=== PATIENT | female | born 1970 | race Caucasian/White ===

== ENCOUNTER 2016-06-27 17:42 | Emergency (ER) | payer BC ==
[2016-06-27] MEDS ORDERED: Ibuprofen TAB* 600 MG PO ONE (18:42)
--- NOTE | 2016-06-27 18:46 | UC ---
Lower Extremity/Ankle HPI - HPI Summary HPI Summary: patient was in an exercise class, rolled ankle and heard a snap, unable to put pressure on it, swelling around lateral maleolus - History of Current Complaint Chief Complaint: UCLowerExtremity Stated Complaint: ANKLE INJURY Time Seen by Provider: 06/27/16 18:40 Hx Obtained From: Patient Hx Last Menstrual Period: iud ?: No Onset/Duration: Sudden Onset, Lasting Minutes Severity Initially: Severe Severity Currently: Severe Aggravating Factor(s): Standing, Ambulation Alleviating Factor(s): Ice Able to Bear Weight: No - Allergies/Home Medications Allergies/Adverse Reactions: Allergies Allergy/AdvReac Type Severity Reaction Status Date / Time Adhesive Tape Allergy LOCAL SKIN Verified 06/27/16 18:29 IRRITATION Sulfa Antibiotics Allergy Rash Verified 06/27/16 18:29 ENVIRONMENTAL Allergy Unknown Uncoded 06/27/16 18:29 Reaction Details PMH/Surg Hx/FS Hx/Imm Hx Previously Healthy: Yes Endocrine History Of: Denies: Diabetes, Thyroid Disease - ENLARGED THYROID- NODES Cardiovascular History Of: Denies: Cardiac Disorders, Hypertension, Pacemaker/ICD Respiratory History Of: Reports: Asthma - PRN ALBUTEROL/cold sx, Bronchitis Denies: COPD GI/ History Of: Denies: Ulcer, Renal Disease Neurological History Of: Reports: Migraine - SEVERAL TIMES PER MONTH-TREATS WITH ADVIL Psychological History Of: Reports: Anxiety - NO MEDS Cancer History Of: Denies: Breast Cancer - Surgical History Surgical History: Yes Surgery Procedure, Year, and Place: cyst removed from rt breast 16 and 21 yrs [id number], RIGHT BREAST, [facility]. WISDOM TEETH A TEEN - Family History Family History: no cardio vascular issues in lineage reported - Social History Alcohol Use: Weekly Alcohol Amount: 0-4 PER WEEK Substance Use Type: None Smoking Status (MU): Never Smoked Tobacco Have You Smoked in the Last Year: No - Immunization History Most Recent Influenza Vaccination: 2016 Most Recent Tetanus Shot: up to date Most Recent Pneumonia Vaccination: no Review of Systems Constitutional: Negative Skin: Negative Eyes: Negative ENT: Negative Respiratory: Negative Cardiovascular: Negative Gastrointestinal: Negative Genitourinary: Negative Motor: Negative Neurovascular: Negative Musculoskeletal: Arthralgia, Decreased ROM, Edema, Myalgia Neurological: Negative Psychological: Negative All Other Systems Reviewed And Are Negative: Yes Physical Exam Triage Information Reviewed: Yes Appearance: Well-Nourished, Ill-Appearing, Pain Distress Vital Signs: Initial Vital Signs Temp 98.1 F 06/27/16 18:22 Pulse 82 06/27/16 18:22 Resp 20 06/27/16 18:22 BP 118/79 06/27/16 18:22 Pulse Ox 100 06/27/16 18:22 Vital Signs Reviewed: Yes Eye Exam: Normal Eyes: Positive: Conjunctiva Clear ENT: Positive: Hearing grossly normal, Pharynx normal, TMs normal Dental Exam: Normal Neck exam: Normal Neck: Positive: Supple, Nontender, No Lymphadenopathy Respiratory Exam: Normal Respiratory: Positive: Chest non-tender, Lungs clear, Normal breath sounds Cardiovascular Exam: Normal Cardiovascular: Positive: RRR, No Murmur, Pulses Normal Abdominal Exam: Normal Abdomen Description: Positive: Nontender, No Organomegaly, Soft Bowel Sounds: Positive: Present Musculoskeletal Exam: Normal Musculoskeletal: Positive: Strength Limited @, ROM Limited @, Edema @ - left lat maleolus swelling and tenderness, ROM limited in all directions Neurological Exam: Normal Neurological: Positive: Alert, Muscle Tone Normal Psychological Exam: Normal Skin Exam: Normal Lower Extremity Course/Dx - Course Course Of Treatment: hx obtained, exam performed, ibuprofen given and xray obtained no fracture noted. ismael wrap gel spint and crutches provided. - Differential Dx/Diagnosis Differential Diagnosis/HQI/PQRI: Contusion, Dislocation, Fracture (Closed), Sprain, Strain Provider Diagnoses: right lateral ankle sprain. abnormal gait Discharge - Discharge Plan Condition: Stable Disposition: HOME Patient Education Materials: Ankle Sprain (ED) Referrals: Luz Kate NP [Primary Care Provider] - Jose Enrique Peterson MD [Medical Doctor] - Additional Instructions: 1. rest, Ice Comrpess and elevate 2. use the crutches to ease back into weight bearing. 3. Use the gel splint for support 4. return slowly to activity 5. I have given a referral to Orthopedics if your pain remains severe and you are having trouble bearing weight within a week.
--- NOTE | 2016-06-27 19:23 | RAD ---
INDICATION: Right ankle injury. TECHNIQUE: 3 views of the right ankle were obtained. FINDINGS: Soft tissue swelling is noted along the anterolateral aspect of the ankle. No fracture is seen. Joint spaces appear maintained. IMPRESSION: SOFT TISSUE SWELLING, NO FRACTURE IS SEEN.
[2016-06-27 20:08] VITALS: BP 144/76
== END 2016-06-27 19:58 | disposition home or self-care (01) ==
LOC: UCEAST 17:42
DX: S93.401A Sprain of unspecified ligament of right ankle, initial encounter (principal); X50.1XXA Overexertion from prolonged static or awkward postures, initial encounter; Y93.9 Activity, unspecified; Y92.89 Other specified places as the place of occurrence of the external cause; J45.909 Unspecified asthma, uncomplicated; Z88.2 Allergy status to sulfonamides; G43.909 Migraine, unspecified, not intractable, without status migrainosus; R26.9 Unspecified abnormalities of gait and mobility
CPT/HCPCS: 99213; A9270-GY; G0463

== ENCOUNTER 2016-11-14 15:32 | Emergency (ER) | payer SELFPAY ==
[2016-11-14 15:46] VITALS: BP 105/55
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
--- NOTE | 2016-11-14 16:19 | RAD ---
Indication: Crush injury to the hand. 4 views of the right hand are reviewed. No fracture is noted. No other bone or joint abnormality is noted. IMPRESSION: No fracture of the right hand is noted.
== END 2016-11-14 16:55 | disposition home or self-care (01) ==
LOC: UCEAST 15:32
DX: S60.221A Contusion of right hand, initial encounter (principal); W20.8XXA Other cause of strike by thrown, projected or falling object, initial encounter; Y93.9 Activity, unspecified; Y92.9 Unspecified place or not applicable; Y99.0 Civilian activity done for income or pay
CPT/HCPCS: 99212; G0463

== ENCOUNTER 2017-08-06 18:54 | Emergency (ER) | payer BC ==
--- OUTSIDE RECORDS SUMMARY | 2017-08-06 19:17 | XMS REPORT ---
:1970 External Reference #:[id number] Author Organization [employer] Address [address] [address] Phone [phone] Care Team Providers Name Role Phone [facility] Care Care Team Information Supervisor Sound Technician Unavailable Luanne Arrington MD Primary Care Physician Unavailable Payers Type Date Identification Numbers Payment Provider Subscriber Commercial Effective: Policy Number: BS James Pickering 2016 [id number] PayID: [id number] [address] [address] Medigap Part B Effective: Policy Number: BS James Pickering 2015 [id number] Expires: 2016 PayID: [id number] [address] [address] [place] [address] Medigap Part B Expires: 2014 Policy Number: [id number] [facility] Cecilio Macariotrish PayID: [id number] [address] [place] [address] Problems Date Description Provider Status Onset: 02/02/2011 Irritable bowel syndrome Luz Kate, N.P. 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 nostril twice daily Probiotic 07/14/ Active Capsules 30cap 1 by Luz 2017 s mouth Varn, every day N.P. Multivitamins / Active Capsules 30cap 1 capsule Unknown 0000 s daily Calcium / Active Tablets 500mg 60tab 1 po qd Unknown 0000 s Vitamin D / Active Capsules 3000Unit 30cap 1po qd Unknown 0000 s IUD / Active Unknown 0000 Zyrtec Allergy / Active Capsules 10mg 1 by Unknown 0000 mouth every day Vitamin B / Active Tablets 1 by Unknown Complex 0000 mouth every day Fish Oil / Active Capsules 1000mg 1 by Unknown 0000 mouth every day Tamoxifen / Active Tablets 20mg daily Unknown Citrate 0000 D 3000 / Active Tablets 1000Unit take two Unknown 0000 capsule/t ablet daily by mouth as vitamin d3 Fluconazole 09/28/ Hx Tablets 150mg 2tabs one by Luz 2016 - mouth july Var, 03/24/ repeat in N.P. 2018 3 days Nitrofurantoin 06/20/ Hx Capsules 100mg 14cap take one N39.3 Kenneth Macrocrystal 2016 - s capsule CHLOÉ Pagan 06/27/ twice 2016 daily for 7 days. Doxycycline 06/20/ Hx Tablets 100mg 2tabs take two S20.361A Kenneth Hyclate 2016 - tablets CHLOÉ Pagan 06/21/ once. 2017 Levofloxacin 05/24/ Hx Tablets 500mg 7tabs 1 tablt J20.9 Jefe 2015 - by mouth Jimenez, 08/09/ every day M.D. 2016 Tessalon Perles 05/24/ Hx Capsules 100mg 20cap 1 cap by J20.9 Jefe 2015 - s mouth Jimenez, 08/09/ three M.D. 2016 times a day as needed Allergy Eye 03/25/ Hx Solution 0.025% 1unit 1-2 drops Luz Drops 2013 - s ou bid Varn, 08/08/ prn N.P. 2014 Vivotif Mimi 03/25/ Hx Capsules DR geiger one po V65.49 Luz 2013 - qod for 4 Varn, 04/02/ doses N.P. 2013 Ciprofloxacin 03/25/ Hx Tablets 500mg 14tab one po V65.49 Luz HCL 2013 - s bid for 7 Varn, 04/01/ days N.P. 2013 No Active 05/31/ Hx Unknown Medications 2012 - 2012 Fluconazole 01/15/ Hx Tablets 150mg 2tabs one by Luz 2011 - mouth july Varn, 01/21/ repeat in N.P. 2011 3 days as needed Azithromycin 02/02/ Hx Tablets 250mg 6tabs two tabs 462 Brandee 2010 - day one, Nicole, 02/12/ one daily M.D., 2010 untill FACP gone Celexa 09/29/ Hx Tablets 20mg 90tab Take One Brandee 2010 - Tablet By Nicole, 05/31/ Mouth M.D., 2012 Every Day FACP OTC Allergy Rx / Hx prn Unknown 0000 - 2015 Fluticasone / Hx Suspension 50mcg/Act 2 sprays Unknown Propionate 0000 - each 08/09/ nostril 2016 everyday Pataday / Hx Solution 0.2% 1 drop in Unknown 0000 - each eye 08/09/ once 2016 daily Probiotic Daily / Hx Capsules Unknown 0000 - 2015 Nyquil Severe / Hx Liquid 5-6.25-10 1 dose at Unknown Cold/Flu 0000 - -325mg/15 hs 08/09/ ML 2016 Pazeo 00/ Hx Solution 0.7% in Unknown 0000 - affected 03/24/ eye as 2018 needed Not Using B Complex / Hx Capsules 1 by Unknown 0000 mouth every day Immunizations CPT Code Status Date Vaccine Lot # [id number] Given 12/05/2016 Influenza Virus Vaccine, Quadrivalent, Split, Preservative Free [id number] Given 12/18/2015 Flu Vaccine NOS [id number] Given 12/11/2014 Fluvirin Im 3Yrs And Older 52906 Given 12/06/2013 Influenza Virus Vaccine, Quadrivalent, Split, [id number] Preservative Free [id number] Given 11/28/2012 Flu Vaccine Split Virus Preservative Free For [id number] Indiv 3Yr Older [id number] Given 06/27/2012 Tdap - Tetanus/Diptheria/Acellular Pertussis [id number] Given 02/24/2009 Influenza Virus Vaccine, Pandemic Formulation 28388 Given 02/24/2009 Administration Swine Flu Shot Vital Signs Date Vital Result Comment 07/14/2017 Weight 141.00 lb Heart Rate 64 /min BP Systolic 124 mmHg BP Diastolic 78 mmHg Body Temperature 98.6 F O2 % BldC Oximetry 98 % 03/24/2017 Weight 137.50 lb Heart Rate 65 /min BP Systolic 122 mmHg BP Diastolic 78 mmHg Body Temperature 98.3 F O2 % BldC Oximetry 98 % 08/15/2016 Height 63.5 inches 5'3.50" Weight 137.50 lb Heart Rate 66 /min BP Systolic 114 mmHg BP Diastolic 62 mmHg Body Temperature 98.6 F O2 % BldC Oximetry 98 % BMI (Body Mass Index) 24.0 kg/m2 07/07/2016 Height 64 inches 5'4" Weight 142.00 lb Heart Rate 75 /min BP Systolic 104 mmHg BP Diastolic 86 mmHg Respiratory Rate 15 /min Pain Level 3 BMI (Body Mass Index) 24.4 kg/m2 06/20/2016 Weight 142.75 lb Heart Rate 79 /min BP Systolic 128 mmHg BP Diastolic 62 mmHg Body Temperature 98.4 F O2 % BldC Oximetry 98 % 05/23/2016 Heart Rate 66 /min BP Systolic 104 mmHg BP Diastolic 74 mmHg Respiratory Rate 16 /min Body Temperature 98.2 F 02/11/2016 Heart Rate 84 /min BP Systolic 98 mmHg BP Diastolic 66 mmHg Respiratory Rate 18 /min Body Temperature 98.4 F 02/02/2016 Height 64 inches 5'4" Weight 150.00 lb Heart Rate 62 /min BP Systolic Sitting 104 mmHg BP Diastolic Sitting 78 mmHg Respiratory Rate 16 /min Body Temperature 98.0 F BMI (Body Mass Index) 25.7 kg/m2 01/25/2016 Height 64 inches 5'4" Weight 150.00 lb Heart Rate 78 /min Respiratory Rate 16 /min Body Temperature 97.8 F BMI (Body Mass Index) 25.7 kg/m2 08/10/2015 Height 63.75 inches 5'3.75" Weight 157.00 lb Heart Rate 72 /min BP Systolic Sitting 110 mmHg BP Diastolic Sitting 62 mmHg Respiratory Rate 15 /min Body Temperature 97.7 F O2 % BldC Oximetry 98 % BMI (Body Mass Index) 27.2 kg/m2 05/25/2015 Height 64 inches 5'4" Weight 157.25 lb Heart Rate 78 /min BP Systolic Sitting 130 mmHg BP Diastolic Sitting 92 mmHg Body Temperature 98.7 F O2 % BldC Oximetry 98 % BMI (Body Mass Index) 27.0 kg/m2 11/07/2014 Weight 154.00 lb Heart Rate 72 /min BP Systolic Sitting 128 mmHg BP Diastolic Sitting 76 mmHg Body Temperature 97.6 F O2 % BldC Oximetry 98 % 08/08/2014 Height 63.75 inches 5'3.75" Weight 154.00 lb Heart Rate 68 /min BP Systolic 105 mmHg BP Diastolic 60 mmHg Body Temperature 99.3 F BMI (Body Mass Index) 26.6 kg/m2 07/10/2013 Weight 149.50 lb Heart Rate 64 /min BP Systolic 122 mmHg BP Diastolic 70 mmHg Respiratory Rate 16 /min Body Temperature 98.0 F 03/25/2013 Weight 153.50 lb Heart Rate 80 /min BP Systolic 114 mmHg BP Diastolic 72 mmHg 11/28/2012 Weight 155.00 lb Heart Rate 72 /min BP Systolic Sitting 110 mmHg BP Diastolic Sitting 70 mmHg 08/08/2012 Weight 150.00 lb Heart Rate 76 /min BP Systolic 118 mmHg BP Diastolic 70 mmHg Respiratory Rate 16 /min 06/27/2012 Height 63.75 inches 5'3.75" Weight 152.00 lb Heart Rate 68 /min BP Systolic Sitting 104 mmHg BP Diastolic Sitting 70 mmHg BMI (Body Mass Index) 26.3 kg/m2 06/15/2012 Weight 152.00 lb Heart Rate 67 /min BP Systolic Sitting 110 mmHg BP Diastolic Sitting 78 mmHg O2 % BldC Oximetry 98 % 05/31/2012 Weight 150.00 lb Heart Rate 78 /min BP Systolic 124 mmHg BP Diastolic 70 mmHg Body Temperature 98.0 F 08/18/2011 Height 64.5 inches 5'4.50" Weight 149.00 lb Heart Rate 64 /min BP Systolic Sitting 102 mmHg BP Diastolic Sitting 64 mmHg BMI (Body Mass Index) 25.2 kg/m2 02/02/2011 Height 64.5 inches 5'4.50" Weight 145.00 lb Heart Rate 72 /min BP Systolic Sitting 122 mmHg BP Diastolic Sitting 66 mmHg Body Temperature 98.8 F Orally BMI (Body Mass Index) 24.5 kg/m2 Results Test Date Test Result H/L Range Note Ua Routine 03/24/2017 Ua Specific Barron 1010 Ua PH 7 Ua Color yellow Ua Appera cloudy Ua WBC negative Ua Protein negative Ua Glucose negative Ua Ketones negative Ua Bilirubin negative Ua Urobilinogen negative Ua Nitrite negative Ua Occult Blood negative [facility] Comprehensive 03/24/2017 Ebv Capsid Ag IgG Ab Positive Negative Ebv Capsid Ag IgM Ab Negative Negative [place] Nuclear Antigen Positive Negative [place] Virus Interp See Comment 1 CBC Auto Diff 03/24/2017 White Blood Count 4.8 10^3/uL 3.5-10.8 Red Blood Count 3.90 10^6/uL Low 4.0-5.4 Hemoglobin 12.7 g/dL 12.0-16.0 Hematocrit 37 % 35-47 Mean Corpuscular Volume 95 fL 80-97 Mean Corpuscular Hemoglobin 33 pg High 27-31 Mean Corpuscular HGB Conc 34 g/dL 31-36 Red Cell Distribution Width 12 % 10.5-15 Platelet Count 165 10^3/uL 150-450 Mean Platelet Volume 9 um3 7.4-10.4 Abs Neutrophils 2.5 10^3/uL 1.5-7.7 Abs Lymphocytes 1.8 10^3/uL 1.0-4.8 Abs Monocytes 0.3 10^3/uL 0-0.8 Abs Eosinophils 0.1 10^3/uL 0-0.6 Abs Basophils 0 10^3/uL 0-0.2 Abs Nucleated RBC 0 10^3/uL Granulocyte % 53.2 % 38-83 Lymphocyte % 38.0 % 25-47 Monocyte % 6.0 % 1-9 Eosinophil % 2.4 % 0-6 Basophil % 0.4 % 0-2 Nucleated Red Blood Cells % 0 Comp Metabolic Panel 03/24/2017 Sodium 138 mmol/L 133-145 Potassium 4.3 mmol/L 3.5-5.0 Chloride 105 mmol/L 101-111 Co2 Carbon Dioxide 30 mmol/L 22-32 Anion Gap 3 mmol/L 2-11 Glucose 93 mg/dL 70-100 Blood Urea Nitrogen 21 mg/dL 6-24 Creatinine 0.77 mg/dL 0.51-0.95 BUN/Creatinine Ratio 27.3 High 8-20 Calcium 9.0 mg/dL 8.6-10.3 Total Protein 6.2 g/dL Low 6.4-8.9 Albumin 4.1 g/dL 3.2-5.2 Globulin 2.1 g/dL 2-4 Albumin/Globulin Ratio 2.0 1-3 Total Bilirubin 0.40 mg/dL 0.2-1.0 Alkaline Phosphatase 54 U/L 34-104 Alt 16 U/L 7-52 Ast 17 U/L 13-39 Egfr Non- 80.7 >60 Egfr 103.8 >60 2 Laboratory test finding 03/24/2017 Ferritin 162.8 ng/mL 11-307 TSH (Thyroid Stim Horm) 0.64 mcIU/mL 0.34-5.60 Vitamin B12 393 pg/mL 180-914 3 Lyme Disease Serology Negative Negative 4 Monospot Negative Negative 5 Iron & Iron Binding Capacity 03/24/2017 Iron 71 g/dL 50-212 Unsaturated Iron Binding 243 g/dL Total Iron Binding Capacity 314 g/dL 250-450 % Iron Saturation 23 % 15-55 Laboratory test finding 02/03/2017 Surgical Pathology SEE RESULT BELOW 6 Lipid Profile (Trig/Chol/HDL) 07/28/2016 Triglycerides 61 mg/dL 7 Cholesterol 121 mg/dL 8 HDL Cholesterol 40.1 mg/dL 9 LDL Cholesterol 69 mg/dL 10 Laboratory test finding 07/28/2016 Glucose 89 mg/dL 70-100 11 Urine Culture And 06/20/2016 Urine Culture SEE RESULT BELOW 12 Sensitivities Ua Routine 06/20/2016 Ua Specific Barron 1.005 Ua PH 5 Ua Color yellow Ua Appera clear Ua WBC tr Ua Protein tr Ua Glucose norm Ua Ketones neg Ua Bilirubin norm Ua Urobilinogen neg Ua Nitrite neg Ua Occult Blood neg Laboratory test 02/04/2016 (HCG) Negative Negative 13 finding Urine Laboratory test 02/04/2016 Surgical Pathology SEE RESULT BELOW 14 finding Laboratory test 01/25/2016 Cytology Non-Stock Tracer SEE RESULT BELOW 15 finding Laboratory test 09/25/2015 (HCG) Negative Negative 16 finding Urine Laboratory test 08/12/2015 Prolactin 9.0 ng/mL 1.0-25.0 17 finding TSH (Thyroid Stim Horm) 0.40 ?IU/mL 0.34-5.60 18 Lipid Profile (Trig/Chol/HDL) 07/27/2015 Triglycerides 94 mg/dL 19 Cholesterol 155 mg/dL 20 HDL Cholesterol 38.0 mg/dL 21 LDL Cholesterol 98 mg/dL 22 Laboratory test 07/27/2015 Glucose 93 mg/dL 70-100 23 finding Laboratory test 05/29/2015 Surgical Pathology SEE RESULT BELOW 24 finding Laboratory test 11/09/2014 O&P Ova & SEE RESULT BELOW 25 finding Parasites Screen Comp Metabolic Panel 07/21/2014 Sodium 136 mmol/L 133-145 Potassium 3.9 mmol/L 3.5-5.0 Chloride 105 mmol/L 101-111 Co2 Carbon Dioxide 26 mmol/L 22-32 Anion Gap 5 mmol/L 2-11 Glucose 82 mg/dL 70-100 Blood Urea Nitrogen 16 mg/dL 6-24 Creatinine 0.72 mg/dL 0.51-0.95 BUN/Creatinine Ratio 22.2 High 8-20 Calcium 8.9 mg/dL 8.6-10.3 Total Protein 6.7 g/dL 6.4-8.9 Albumin 4.5 g/dL 3.2-5.2 Globulin 2.2 g/dL 2-4 Albumin/Globulin Ratio 2.0 1-3 Total Bilirubin 0.80 mg/dL 0.2-1.0 Alkaline Phosphatase 79 U/L 34-104 Alt 12 U/L 7-52 Ast 15 U/L 13-39 Egfr Non- 88.4 >60 Egfr 113.7 >60 26 Lipid Profile (Trig/Chol/HDL) 07/21/2014 Triglycerides 105 mg/dL 27 Cholesterol 156 mg/dL 28 HDL Cholesterol 35.6 mg/dL 29 LDL Cholesterol 99 mg/dL 30 Laboratory test finding 08/08/2012 Thyroid Stimulating <1.0 TSIindex & lt;=1.3 31 Immunoglob Thyroid Autoantibodies 08/08/2012 Thyroglobulin Ab Scrn <20 IU/mL < 116 32 Thyroperoxidase Ab 0.8 IU/mL <9.0 Laboratory test 08/08/2012 Achr Binding 0.00 nmol/L <=0.02 33 finding Autoantibodies Vitamin D 1,25 And 05/31/2012 Vitamin D 1,25-Dihydroxy 43 pg/mL 18-78 34 Vitamin D,2 Vitamin D, 25 Hydroxy 05/31/2012 25-Hydroxy Vitamin D2 <4.0 ng/mL 25-Hydroxy Vitamin D3 29 ng/mL 25-Hydroxy Vitamin D Total 29 ng/mL 35 Laboratory test finding 05/31/2012 Vitamin B12 377 pg/mL 180-914 Laboratory test finding 05/31/2012 Ferritin 81 ng/mL 11-307 Lyme Disease Serology Negative Negative 36 TSH (Thyroid Stimulating Horm) 0.56 miu/mL 0.34-5.60 Erythrocyte Sed Rate 13 mm/Hr 0-14 C Reactive Protein 0.5 mg/dL Less than 0.5 Comp Metabolic Panel 05/31/2012 Sodium 141 mmol/L 133-145 Potassium 4.1 mmol/L 3.5-5.0 Chloride 107 mmol/L 101-111 Co2 Carbon Dioxide 27.0 mmol/L 22-32 Anion Gap 7.0 mmol/L 2-11 Glucose 90 mg/dL 70-100 Blood Urea Nitrogen 16 mg/dL 6-24 Creatinine 0.70 mg/dL 0.50-1.40 BUN/Creatinine Ratio 22.9 High 8-20 Calcium 9.5 mg/dL 8.1-9.9 Total Protein 6.3 g/dL 6.2-8.1 Albumin 4.2 g/dL 3.6-5.4 Globulin 2.1 g/dL 2-4 Albumin/Globulin Ratio 2.0 1-3 Total Bilirubin 0.6 mg/dL 0.4-1.5 Alkaline Phosphatase 82 U/L 30-110 Alt 15 U/L 14-54 Ast 20 U/L 12-42 Egfr Non- 92.2 >60 Egfr 118.6 >60 37 CBC With Manual Diff 05/31/2012 White Blood Count 4.5 10^3/uL Low 4.8- 10.8 Red Blood Count 4.21 10^6/uL 4.0-5.4 Hemoglobin 13.9 g/dL 12.0-16.0 Hematocrit 40 % 35-47 Mean Corpuscular Volume 94 fL 80-97 Mean Corpuscular Hemoglobin 33 pg High 27-31 Mean Corpuscular HGB Conc 35 g/dL 31-36 Red Cell Distribution Width 12 % 10.5-15 Platelet Count 198 10^3/uL 150-450 Mean Platelet Volume 9 um3 7.4-10.4 Abs Neutrophils 2.8 10^3/uL 1.5-7.7 Abs Lymphocytes 1.3 10^3/uL 1.0-4.8 Abs Monocytes 0.3 10^3/uL 0-0.8 Abs Eosinophils 0.1 10^3/uL 0-0.6 Abs Basophils 0 10^3/uL 0-0.2 Abs Nucleated RBC 0 10^3/uL Neutrophil % 71 % 38-83 Lymphocytes % 21 % Low 25-47 Monocytes % 7 % 0-13 Eosinophils % 1 % 0-6 RBC Morphology Normal Normal Laboratory test 02/02/2011 TSH 0.58 MIU/ML 0.34-5.60 finding Laboratory test 02/02/2011 Throat Culture Full 38 finding <SEE NOTE> 1 RESULT: Results suggest past infection. ADDITIONAL INFORMATION In most populations, at least 90% of the adult population will have been infected with EBV sometime in the past and therefore, will be positive for anti-VCA/IgG and anti- EBNA. Antibodies to EBNA develop 6-8 weeks after primary infection and remain present for life. Presence of VCA/ IgM antibodies indicates recent primary infection with EBV. Test Performed by: [facility] [address], [place] [address] 2 Because ethnic data is not always readily available, this report includes an eGFR for both -Americans and non- Americans. The National Kidney Disease Education Program (NKDEP) does not endorse the use of the MDRD equation for patients that are not between the ages of 18 and 70, are , have extremes of body size, muscle mass, or nutritional status, or are non- or non-. According to the National Kidney Foundation, irrespective of diagnosis, the stage of the disease is based on the level of kidney function: Stage Description GFR(mL/min/1.73 m(2)) 1 Kidney damage with normal or decreased GFR 90 2 Kidney damage with mild decrease in GFR 60-89 3 Moderate decrease in GFR 30-59 4 Severe decrease in GFR 15-29 5 Kidney failure <15 (or dialysis) 3 Normal Range 180 to 914 Indeterminate Range 145 to 180 Deficient Range <145 4 Serologic response to B. burgdorferi infection is not detected, but cannot rule out early infection during which low or undetectable antibody levels to B. burgdorferi may be present. If clinically indicated, a new serum specimen should be submitted in 7-14 days. Test Performed by: [facility] [address] [place] [address] 5 Would you like an EBV if Monospot is Negative?: Y 6 SEE RESULT BELOW Name: JANNY PICKERING : [address]: Ezra Shook MD Acct: [id number] Unit: [id number] AGE: 46 Location: [facility] Re02/03/17 SEX: F Status: REG REF SPEC: [id number] LUCILA: 02/03/17-1114 [facility] DR: Ezra Shook MD REQ: [id number] RECD: 02/03/172812 STATUS: DINAH CLAYTON DR: Luz Kate REPORTER _ ORDERED: LEVEL 4/2, IMMUNO-FIRST/2 COMMENTS: [id number] FINAL DIAGNOSIS 1. 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 2. Uterus, endocervix, curettage: -- Benign cervical tissue with no evidence of HPV-related viral cytopathic effect or squamous dysplasia. COMMENT: P16 immunohistochemical stains, with appropriately reacting controls, were performed on sections cut from specimen 1 and 2 and support the diagnoses. PRE-OPERATIVE DIAGNOSIS Low grade squamous intraepithelial lesion GROSS DESCRIPTION 1. The specimen is received in formalin labeled, Cervical Biopsy, and consists of a 0.6 by up to 0.4 x 0.2 cm steiner-white irregular soft tissue fragment which is inked, bisected and submitted entirely in one cassette. 2. The specimen is received in formalin labeled, ECC, and consists of a 1.5 x 1.3 x 0.4 cm aggregate of steiner-white mucus which is submitted entirely in one cassette. Signed (signature on file) Janny Mckoy MD 08/20 1127 END OF REPORT * ML=Testing performed at Main Lab DEPARTMENT OF PATHOLOGY, [address] [place] [address] Renaldo Ledesma M.D. Director [facility] # [id number] 7 Desirable <150 Borderline high 150-199 High 200-499 Very High >500 8 Desirable <200 Borderline high 200-239 High >239 9 Low <40 Desirable: 40-60 High: >60 10 Desirable: <100 mg/dL Near Optimal: 100-129 mg/dL Borderline High: 130-159 mg/dL High: 160-189 mg/dL Very High: >189 mg/dL 11 FASTING 10 HOUR 12 SEE RESULT BELOW Name: JANNY PICKERING : [address]: Kenneth Pagan NP Acct: [id number] Unit: [id number] AGE: 46 Location: [facility] Re06/20/16 SEX: F Status: REG REF SPEC: [id number] LUCILA: 06/20/[address]: Kenneth Pagan NP REQ: [id number] RECD: 06/20/16 STATUS: COMP _ SOURCE: URINE SPDESC: ORDERED: Urine Culture COMMENTS: [id number] Urine Source: Random Procedure Result Reported Site Urine Culture Final 06/21/16- 1619 ML No Growth (<1,000 CFU/mL) * ML - MAIN LAB ([facility]) . END OF REPORT * ML=Testing performed at Main Lab DEPARTMENT OF PATHOLOGY, [address] [place] [address] Renaldo Ledesma M.D. Director [facility] # [id number] 13 If is still suspected, please repeat test after 48 to 72 hours. This test detects intact HCG only and is indicated for the early detection of . 14 SEE RESULT BELOW Name: PICKERINGJANNY Roman : [address]: Lizzy Marie MD Acct: [id number] Unit: [id number] AGE: 45 Location: [facility] Re02/04/16 SEX: F Status: REG [facility] SPEC: [id number] LUCILA: 02/04/16-32[address] [facility] [address]: Lizzy Marie MD REQ: [id number] RECD: 02/04/163616 STATUS: SOUT _ ORDERED: CONSULT W/ FS, LEVEL IV, LEVEL V/2 FINAL DIAGNOSIS 1. Breast, right, core biopsy: -- Fibroadenoma with epithelial hyperplasia. 2. Breast, right, needle localization excision: -- Fibroadenoma with focal involvement by focal atypical ductal hyperplasia and columnar cell change with atypia. -- Atypical intraductal papilloma. -- Proliferative fibrocystic change with focal atypical ductal hyperplasia -- Radial scar (incidental) in adjacent tissue. -- Margins of resection are clear of atypia by greater than 3 mm. 3. Breast, right, additional tissue: -- Benign breast tissue. Comment: The main specimen (part 2) demonstrates 2 fibroadenomas (16 mm, and 6 mm respectively) approximately 1 cm apart. The dominant lesion demonstrates areas of columnar cell change with atypia as well as ducts demonstrating epithelial proliferation with atypia meeting criteria for atypical ductal hyperplasia. These areas undoubtedly correlate with areas of increased cellular discohesion and cytologic atypia seen on recent fine-needle aspiration biopsy which raised suspicion for neoplasia in that specimen. Focal atypical ductal hyperplasia is likewise seen in adjacent breast tissue and a small intraductal papilloma is noted on slide 2G demonstrating partial solid growth pattern with cytologic atypia meeting criteria for atypical intraductal papilloma. This is likely an incidental finding. Dr. Mckoy has reviewed this case and concurs. CONTINUED ON NEXT PAGE * ML=Testing performed at Main Lab DEPARTMENT OF PATHOLOGY, [address] [place] [address] Renaldo Ledesma M.D. Director [facility] # [id number] RUN DATE: 02/08/16 [facility] LAB LIVE PAGE 2 Patient: RAHEELJANNY Mnea [id number] (Continued) PATHOLOGY SURGICAL CONSULT (Continued) PATHOLOGY SURGICAL CONSULT Frozen section (FS)/Touch Prep (TP)/Gross Consult (GC) FS1) Breast, right, core needle biopsy: Fibroadenoma with atypical intraductal proliferation. (DS) Suspicious for ductal carcinoma in situ versus atypical ductal hyperplasia ( DS) Dr Marie notified at 1400 on 02/04/16. PRE-OPERATIVE DIAGNOSIS Unspecified lump in breast, right breast lump; 2) short suture superior, medium suture medial, long suture lateral; 3) long suture lateral, medium suture medial, short suture superior GROSS DESCRIPTION 1. The specimen is received fresh labeled, Core Needle Biopsy Right Breast , and consists of a 0.5 x 0.2 x 0.1 cm aggregate of yellow-pink irregular to cylindrical fibrofatty soft tissue fragments, which is entirely submitted for frozen section microscopy. The frozen section residue is submitted in one cassette. 2. The specimen is received in formalin labeled, Right Breast Lump, and consists of a 5.4 x 5.0 x 2.5 cm yellow ovoid portion of fibrofatty soft tissue with three attached sutures, which are designated as follows: long-lateral, short-superior and medium- medial. The specimen is partially surfaced by a 2.4 x 0.5 cm steiner-white wrinkled skin ellipse on the superior anterior aspect. There is a 1.5 x 1.5 x 1.4 cm steiner-white well- defined mass within the central specimen, which abuts the superior anterior margin. The remaining cut surface consists predominantly of steiner-pink dense rubbery fibrous tissue with moderate interspersed yellow lobulated adipose tissue. The specimen is inked as follows: superior anterior-blue, inferior anterior-green and deep-black, serially sectioned from lateral to medial and patient financial representative sections are submitted in cassettes A through J to include mass in cassettes C through G. 3. The specimen is received in formalin labeled, Additional Tissue, and consists of a 4.8 x 3.3 x 2.1 cm yellow ovoid portion of fibrofatty soft tissue with three attached sutures, which are designated as follows: long-lateral, short-superior and medium- medial. The cut surface consists predominantly of yellow lobulated adipose tissue with a small amount of interspersed steiner-pink dense rubbery fibrous tissue more predominate in the lateral and medial specimen. A discrete lesion is not identified. The specimen is inked as follows: superior anterior-blue, inferior anterior-green and deep-black, serially sectioned from CONTINUED ON NEXT PAGE * ML=Testing performed at Main Lab DEPARTMENT OF PATHOLOGY, [address] [place] [address] Renaldo Ledesma M.D. Director [facility] # [id number] RUN DATE: 02/08/16 [facility] LAB LIVE PAGE 3 Patient: JANNY PICKERING [id number] (Continued) GROSS DESCRIPTION (Continued) GROSS DESCRIPTION (Continued) lateral to medial and patient financial representative sections are submitted in cassettes A through H. Signed (signature on file) Renaldo Ledesma MD 1010 END OF REPORT * ML=Testing performed at Main Lab DEPARTMENT OF PATHOLOGY, [address] [place] [address] Renaldo Ledesma M.D. Director [facility] # [id number] 15 SEE RESULT BELOW Name: PICKERING,JANNY F : [address]: Lizzy Marie MD Acct: [id number] Unit: [id number] AGE: 45 Location: LAB Re01/25/16 SEX: F Status: REG REF SPEC: [id number] LUCILA: 01/25/16 [facility] DR: Renaldo Ledesma MD REQ: [id number] RECD: 01/25/16 STATUS: DINAH CLAYTON DR: Lizzy Marie MD _ ORDERED: FN ASP SUPERFIC, FN ASP PALP, LEVEL IV, FNA IMMEDIATE S, PATH CONSULT Addendum: The procedure was explained to and understood by the patient. Signed consent was obtained and a time out procedure was performed at the bedside to verify patient identity and biopsy site. Fine needle aspiration biopsy was performed times 2 with a 25 gauge needle on 1 cm right breast nodule at approximately 12:00, 3 cm superior to the areolar rim. Adequacy was assessed by fast stain technique. The procedure was tolerated well without complications. Addendum Signed (signature on file) Renaldo Ledesma MD 1615 FINAL DIAGNOSIS Breast, right @ 12 o'clock, fine needle aspiration by palpation: -- Atypical-highly suspicious for ductal neoplasm. See comment. The aspirate smears are abundantly cellular and demonstrate a dimorphic proliferation. 2 slides demonstrate areas of discohesive epithelial elements with abundant single cells demonstrating moderate nuclear pleomorphism an irregular nuclear contours with rare mitotic figures noted. A few pyknotic clusters are also noted. Other areas of the slide demonstrate typical features of a benign fibroadenoma including social services aide cohesive arborize clusters with associated myoepithelial elements as well as fibrillary stromal fragments and abundant bare bipolar nuclei in the background. I favor these findings to represent either an invasive ductal CONTINUED ON NEXT PAGE * ML=Testing performed at Main Lab DEPARTMENT OF PATHOLOGY, [address] [place] [address] Renaldo Ledesma M.D. Director CLIA # [id number] RUN DATE: 01/26/16 [facility] LAB LIVE PAGE 2 Patient: JANNY PICKERING [id number] (Continued) SPECIMEN COMMENTS (Continued) carcinoma adjacent to or involving a fibroadenoma, or possibly ductal carcinoma in situ adjacent to or involving a fibroadenoma. Less likely is that these areas represent atypical ductal hyperplasia involving a fibroadenoma. Surgical excision of this lesion with appropriate margins is warranted.. Smears and cell block reveal similar findings. This case was discussed with Dr. Marie on 01/25/11. Dr. Mckoy has reviewed this case and concurs. BREAST RIGHT - FINE NEEDLE ASPRIATION RIGHT BREAST CLINICAL HISTORY 1 cm right breast nodule at 12:00, 3 cm from areola IMMEDIATE INTERPRETATION Pass 1 2 - adequate GROSS DESCRIPTION Fine needle aspiration by palpation x 2, 3 alcohol fixed slide(s) and needle rinse in formalin for cell block. Signed (signature on file) Renaldo Ledesma MD 1311 END OF REPORT * ML=Testing performed at Main Lab DEPARTMENT OF PATHOLOGY, [address] [place] [address] Renaldo Ledesma M.D. Director [facility] # [id number] 16 If is still suspected, please repeat test after 48 to 72 hours. This test detects intact HCG only and is indicated for the early detection of . 17 [id number] FASTING 10 HOUR 18 [id number] FASTING 10 HOUR 19 Desirable <150 Borderline high 150-199 High 200-499 Very High >500 20 Desirable <200 Borderline high 200-239 High >239 21 Low <40 Desirable: 40-60 High: >60 22 Desirable: <100 mg/dL Near Optimal: 100-129 mg/dL Borderline High: 130-159 mg/dL High: 160-189 mg/dL Very High: >189 mg/dL 23 [id number] FASTING 10 HOUR 24 SEE RESULT BELOW Name: JANNY PICKERING : [address]: Peter Owens MD Acct: [id number] Unit: [id number] AGE: 45 Location: [facility] Re05/29/15 SEX: F Status: REG REF SPEC: [id number] LUCILA: 05/29/15-[address]: Peter Owens MD REQ: [id number] RECD: 05/29/15042 STATUS: DINAH CLAYTON DR: Luz Kate REPORTER _ ORDERED: LEVEL IV FINAL DIAGNOSIS Colon, random, biopsy: -- Benign colonic mucosa with no significant pathologic abnormalities. -- No evidence of microscopic colitis. CLINICAL HISTORY Chronic diarrhea POST-OPERATIVE DIAGNOSIS Colonoscopy to terminal ileum, excellent prep; normal terminal ileum. Normal colonic mucosa; random biopsies, no diverticules or polyps; rectum normal; retroflex negative. Conclusions/Plan: Negative colon and terminal ileum, biopsies pending GROSS DESCRIPTION The specimen is received in formalin labeled, Random Colon Biopsies, and consists of a 1.1 x 0.8 x 0.1 cm aggregate of steiner-white irregular soft tissue fragments, which is submitted entirely in one cassette. Signed (signature on file) Janny Mckoy MD 1009 END OF REPORT * ML=Testing performed at Main Lab DEPARTMENT OF PATHOLOGY, [address] [place] [address] Renaldo Ledesma M.D. Director [facility] # [id number] 25 SEE RESULT BELOW Name: JANNY PICKERING : [address]: Luz Kate NP Acct: [id number] Unit: [id number] AGE: 44 Location: LAB Re11/09/14 SEX: F Status: REG REF SPEC: [id number] LUCILA: 11/09/[address]: Luz Kate NP REQ: [id number] RECD: 11/09/14 STATUS: COMP _ SOURCE: STOOL SPDESC: ORDERED: O P: Giar/Crypt Procedure Result Verified Site O P: Giardia/Cryptospor Screen Final 11/10/14- 1200 ML Organism 1 Neg Cryptosporidium/Giardia Giardia and cryptosporidium antigen testing performed by enzyme immunoassay. If patient is immunocompromised or has traveled to or is from a developing country, a full ova and parasite exam with microscopic (OPMIC) is recommended. All samples will be held one month in case full ova and parasite testing is requested. Contact the Microbiology Department at [phone]. TEST LIMITATIONS: As with all diagnostic procedures, the results obtained should be used in conjunction with other clinical information available the physician, including confirmation by another method. Negative results can occur in samples containing antigen below lower limits of detection of the assay. One negative specimen does not rule out the possibility of a parasitic infection. To improve detection it is recommended that three specimens be collected on separate days over a period of not more than seven days. The use of colonic washes, aspirates or other diluted sample types has not been established and could affect the performance of the assay. Stool samples contaminated with an oily or particulate base (eg. Barium, mineral oil etc.) could interfere with the test and are not recommended. CONTINUED ON NEXT PAGE * ML=Testing performed at Main Lab DEPARTMENT OF PATHOLOGY, [address] [place] [address] Renaldo Ledesma M.D. Director [facility] # [id number] Patient: RAHEELJANNY FARR [id number] (Continued) Specimen: [id number] Collected: 11/09/14 Received: 11/09/14-946 (Continued) Procedure Result Verified Site O P: Giardia/Cryptospor Screen Final (continued) 11/10/14- 1200 * ML - MAIN LAB (PSC1) . END OF REPORT * ML=Testing performed at Main Lab DEPARTMENT OF PATHOLOGY, [address] [place] [address] Renaldo Ledesma M.D. Director [facility] # [id number] 26 Because ethnic data is not always readily available, this report includes an eGFR for both -Americans and non- Americans. The National Kidney Disease Education Program (NKDEP) does not endorse the use of the MDRD equation for patients that are not between the ages of 18 and 70, are , have extremes of body size, muscle mass, or nutritional status, or are non- or non-. According to the National Kidney Foundation, irrespective of diagnosis, the stage of the disease is based on the level of kidney function: Stage Description GFR(mL/min/1.73 m(2)) 1 Kidney damage with normal or decreased GFR 90 2 Kidney damage with mild decrease in GFR 60-89 3 Moderate decrease in GFR 30-59 4 Severe decrease in GFR 15-29 5 Kidney failure <15 (or dialysis) 27 Desirable <150 Borderline high 150-199 High 200-499 Very High >500 28 Desirable <200 Borderline high 200-239 High >239 29 Low <40 Desirable: 40-60 High: >60 30 Desirable: <100 mg/dL Near Optimal: 100-129 mg/dL Borderline High: 130-159 mg/dL High: 160-189 mg/dL Very High: >189 mg/dL 31 Test Performed by: [address] [address] Dental Chairside Assistant: Mike Agudelo III, M.D. 32 If thyroglobulin antibody measurement is performed to assess the reliability of the thyroglobulin assay for thyroid cancer patient follow-up, a thyroglobulin antibody result=/>22 IU/mL may result in falsely decreased thyroglobulin values. The thyroglobulin antibody testing method is an electrochemiluminescence assay manufactured by [employer] and performed on the Modular or Natali system. Values obtained from different assay methods or kits may be different and cannot be used interchangeably. Test Performed by: [place] [address] Dental Chairside Assistant: Mike Agudelo III, M.D. 33 Test Performed by: [place] [address] Dental Chairside Assistant: Mike Agudelo III, M.D. 34 Test Performed by: [place] [address] Dental Chairside Assistant: Mike Agudelo III, M.D. 35 -- REFERENCE VALUE -- 25-HYDROXY D TOTAL (D2+D3) Optimum levels in the normal population are 25-80 Test Performed by: [place] [address] Dental Chairside Assistant: Mike Agudelo III, M.D. 36 Serologic response to B. burgdorferi infection is not detected, but cannot rule out early infection during which low or undetectable antibody levels to B. burgdorferi may be present. If clinically indicated, a new serum specimen should be submitted in 7-14 days. Test Performed by: [place] [address] Dental Chairside Assistant: Mike Agudelo III, M.D. 37 Because ethnic data is not always readily available, this report includes an eGFR for both -Americans and non- Americans. The National Kidney Disease Education Program (NKDEP) does not endorse the use of the MDRD equation for patients that are not between the ages of 18 and 70, are , have extremes of body size, muscle mass, or nutritional status, or are non- or non-. According to the National Kidney Foundation, irrespective of diagnosis, the stage of the disease is based on the level of kidney function: Stage Description GFR(mL/min/1.73 m(2)) 1 Kidney damage with normal or decreased GFR 90 2 Kidney damage with mild decrease in GFR 60-89 3 Moderate decrease in GFR 30-59 4 Severe decrease in GFR 15-29 5 Kidney failure <15 (or dialysis) 38 RUN DATE: 02/04/11 [facility] NMI LIVE PAGE 1 RUN TIME: 1059 Specimen Inquiry RUN USER: INTERFACE Name: JANNY PICKERING Status: REG REF Re02/02/11 Age/Sex: 40/F Unit#: [id number] Location: [facility] [place] : [birth year] SPEC #: [id number] LUCILA: 02/02/11 STATUS: COMP REQ #: [id number] RECD: 02/02/[address]: Luz Siu SOURCE: THROAT ENTR: 02/02/[address]: LIZ: ORDERED: THROAT CULTURE COMMENTS: STREP A PLEASE QUERIES: MEDENT REQUISITION # [id number] ACT WKST: B 02/04/11 #1 Procedure Result Verified Site > THROAT CULTURE FULL Final -1058 ML NORMAL THROAT BRANDY FULL THROAT CULTURES ARE CLINICALLY INDICATED TO DETECT THE PRESENCE OF GROUP A STREP, ARCANOBACTERIUM AND YEAST. - [facility] Permit #[id number] [address] [place] [address] DEPARTMENT OF PATHOLOGY, [address] [place] [address] [facility] Permit #[id number] Renaldo Ledesma M.D. Director Doris Enciso M.D. [employer] Procedures Date CPT Code Description Status 08/29/2016 Mammogram Completed 02/04/2016 74803 Excise Breast Lesion Single,Identified By Pre-Op Completed Radiolog Marker 02/04/2016 24173 Excise Breast Lesion Single,Identified By Pre-Op Completed Radiolog Marker 01/20/2016 Mammogram Completed 09/01/2015 Mammogram Completed 02/03/2015 Mammogram Completed 03/13/2008 20484 EKG Tracing & Interpretation Completed Encounters Type Date Location Provider CPT E/M Dx Office Visit 03/24/2017 2:20p [facility] [place] [address] N39.3 [place] R53.83 R10.813 Office Visit 08/15/2016 3:20p [facility] Luz Kate, N.P. 99939 Z00.01 - [place] E78.6 K58.0 E04.2 N64.89 R60.0 Office Visit 07/07/2016 8:00a [facility] [address] S93.401A Of Stevan Khoury MD Office Visit 06/20/2016 4:20p [facility] [place] [address] R30.0 - [place] S20.361A Office Visit 05/23/2016 1:30p [facility] [place] [address] N64.59 [facility] Office Visit 01/25/2016 3:00p [facility] [place] [address] N63 [facility] Office Visit 08/10/2015 3:20p [facility] Luz Kate, N.P. 59160 Z00.01 - [place] E78.6 K58.0 E04.2 N64.3 Office Visit 05/25/2015 4:20p [facility] Jefe Jimenez M.D. [address] J20.9 - [address] Office Visit 11/07/2014 10:00a [facility] Luz Kate, N.P. 92218 V58.32 - [place] 787.91 Office Visit 08/08/2014 3:20p [facility] Luz Kate, N.P. 54699 V70.0 - [place] 564.1 272.4 719.45 311 389.9 Office Visit 07/10/2013 2:00p [facility] - Brandee Rivera M.D., 02433 789.9 [place] FACP 564.1 Office Visit 03/25/2013 3:40p [facility] Luz Kate, N.P. 58063 V65.49 - [place] Office Visit 11/28/2012 4:20p [facility] Luz Kate, N.P. 98150 719.45 - [place] V04.81 Office Visit 08/08/2012 9:00a [facility] Karrie Omer, 31231 368.2 Services Of [facility] [place] Office Visit 06/27/2012 3:00p [facility] Brandee Rivera M.D., 15203 V70.0 - [place] FACP V76.10 704.02 V06.1 Office Visit 06/15/2012 3:40p [facility] Luz Kate, N.P. 70670 368.2 - [place] Office Visit 05/31/2012 11:00a [facility] Luz Kate, N.P. 58957 780.79 - [place] 368.2 Office Visit 08/18/2011 9:20a [facility] Luz Kate, N.P. 62448 719.43 - [place] Office Visit 02/02/2011 10:00a DO Not Use Luz Kate, N.P. 79945 [address] [facility] 240.9 Office Visit 03/26/2009 3:45p DO Not Use [facility] Brandee Rivera 35487 309.0 M.D., FACP Office Visit 02/24/2009 3:30p DO Not Use [facility] Brandee Rivera 36657 311 M.D., FACP V04.81 Office Visit 01/07/2009 2:15p DO Not Use [facility] Brandee Rivera, 36185 564.1 M.D., FACP 780.79 311 Office Visit 11/14/2008 1:15p DO Not Use [facility] Luz Kate, 32376 461.9 N.P. 372.30 Office Visit 06/06/2008 3:00p DO Not Use [facility] Brandee Rivera, 98701 465.9 M.D., FACP Office Visit 03/13/2008 3:30p DO Not Use [facility] Brandee Rivera, 24714 V72.31 M.D., FACP 272.0 Plan of Care Future Appointment(s):08/23/2017 3:00 pm - Luz Kate N.P. at [facility] - Fqscctzve40/11/2018 - Luz Kate N.P.M77.11 Lateral epicondylitis , right elbowComments:~l_a href=~q_www.[employer].com~q_ target=~q__blank~q_~g_ [email or web address]~l_/a~g_ - for tennis elbowFor your tendonitis:Apply ice for 20 minutes, 2 - 3 times daily.You may take Ibuprofen 600 mg every 6 hours as you need it, take this with a little food.Rest your arm.Refer to the website above for exercises to do.If your symptoms don't improve call the office.
[2017-08-06 19:28] VITALS: BP 107/64
--- NOTE | 2017-08-06 19:43 | ED ---
Throat Pain/Nasal Congestion - HPI Summary HPI Summary: 47-year-old otherwise healthy female who wears eyeglasses presents with left eye wateriness, foreign body sensation/irritation since this afternoon. She had been mowing the lawn earlier this morning. It does feel like there is something in the eye. She denies any specific or known injury. Her vision is normal grossly. She does not wear contacts. She denies any history of autoimmune or HLA associated disorders. She has not had her eyes dilated by an eye doctor recently. She does have a history of seasonal allergies and states that when her allergies flirts usually the left eye. She currently takes Zyrtec for that. - History of Current Complaint Chief Complaint: UCEye Time Seen by Provider: 08/06/17 19:34 Hx Obtained From: Patient - Allergies/Home Medications Allergies/Adverse Reactions: Allergies Allergy/AdvReac Type Severity Reaction Status Date / Time Adhesive Tape Allergy LOCAL SKIN Verified 08/06/17 19:28 IRRITATION Sulfa (Sulfonamide Allergy Rash Verified 08/06/17 19:28 Antibiotics) ENVIRONMENTAL Allergy Unknown Uncoded 08/06/17 19:28 Reaction Details Home Medications: Home Medications Ibuprofen TAB* [Advil TAB*] 400 mg PO ONCE PRN 08/06/17 [History Confirmed 08/06] L.acidoph,Paracasei, B.lactis [Probiotic] 1 each PO DAILY 08/06/17 [History Confirmed 08/06/17] PMH/Surg Hx/FS Hx/Imm Hx Previously Healthy: Yes Endocrine/Hematology History: Denies: Hx Diabetes, Hx Thyroid Disease - ENLARGED THYROID- NODES Cardiovascular History: Denies: Hx Hypertension, Hx Pacemaker/ICD, Other Cardiovascular Problems/ Disorders Respiratory History: Reports: Hx Asthma Denies: Hx Chronic Obstructive Pulmonary Disease (COPD), Other Respiratory Problems/Disorders GI History: Reports: Hx Gastroesophageal Reflux Disease, Hx Irritable Bowel Denies: Hx Ulcer History: Denies: Hx Dialysis, Hx Renal Disease Musculoskeletal History: Denies: Other Musculoskeletal History Sensory History: Denies: Hx Contacts or Glasses - GLASSES, Hx Hearing Aid Opthamlomology History: Denies: Hx Contacts or Glasses - GLASSES Neurological History: Reports: Hx Migraine - SEVERAL TIMES PER MONTH-TREATS WITH ADVIL Denies: Other Neuro Impairments/Disorders Psychiatric History: Reports: Hx Anxiety - NO MEDS Denies: Hx Panic Disorder - Cancer History Hx Chemotherapy: No - TOMOXIFIN Hx Radiation Therapy: No - Surgical History Surgery Procedure, Year, and Place: RIGHT BREAST CYST [id number]-SHSIGO + 2016, RIGHT BREAST, [facility]-lumpectomy and then duct removed. RIGHT BREAST SURGERY 2017 X2. WISDOM TEETH A TEEN Hx Anesthesia Reactions: No Infectious Disease History: No Infectious Disease History: Denies: Hx Clostridium Difficile, Hx Hepatitis, Hx Human Immunodeficiency Virus (HIV), Hx of Known/Suspected MRSA, Hx Shingles, Hx Tuberculosis, Hx Known/ Suspected VRE, Hx Known/Suspected VRSA, History Other Infectious Disease, Traveled Outside the [place] in Last 30 Days - Family History Known Family History: Family History: no cardio vascular issues in lineage reported - Social History Alcohol Use: Occasionally Alcohol Amount: 0-4 PER WEEK Substance Use Type: Reports: None Smoking Status (MU): Never Smoked Tobacco Have You Smoked in the Last Year: No Review of Systems Negative: Fever Positive: Drainage, Erythema, Other - foreign body sensation. Negative: Blurred Vision Negative: Headache All Other Systems Reviewed And Are Negative: Yes Physical Exam Triage Information Reviewed: Yes Vital Signs On Initial Exam: Initial Vitals Temp Pulse Resp BP Pulse Ox 98.6 F 68 16 107/64 100 08/06/17 19:23 08/06/17 19:23 08/06/17 19:23 08/06/17 19:23 08/06/17 19:23 Vital Signs Reviewed: Yes Appearance: Positive: Well-Appearing, No Pain Distress Skin: Positive: Warm, Dry Head/Face: Positive: Normal Head/Face Inspection Eyes: Positive: EOMI, NAOMI, Conjunctiva Inflammed, Other: - No definite foreign body visualized with eversion of the lids. Topical tetracaine applied with relief. Small amount of whitish drainage. Cobblestoning seen in the conjunctiva of the lower lid No fluorescein uptake. No discomfort with direct or consensual light reflex. Respiratory/Lung Sounds: Positive: Clear to Auscultation Cardiovascular: Positive: RRR Neurological: Positive: Other - Vision grossly normal. AVPU Assessment: [facility] - Vital Signs Vital Signs Temp Pulse Resp BP Pulse Ox 08/06/17 19:23 98.6 F 68 16 107/64 100 - Laboratory Lab Statement: Any lab studies that have been ordered have been reviewed, and results considered in the medical decision making process. Re-Evaluation - Re-Evaluation First Eval Change: Improved - Tetracaine relieved her symptoms EENT Course/Dx - Course Course Of Treatment: No foreign body identified with lid eversion. No corneal abrasion. Vision grossly normal. Cobblestoning present, likely allergy associated. Will place on topical antiallergy drops and have her 3 dose her Zyrtec tonight. Follow-up with eye doctor. - Differential Diagnoses Differential Diagnoses: Corneal Abrasion, Uveitis, Other - Allergic conjunctivitis, viral conjunctivitis, foreign body - Diagnoses Provider Diagnoses: Allergic conjunctivitis of left eye Discharge - Sign-Out/Discharge Documenting (check all that apply): Discharge/Admit/Transfer - Discharge Plan Condition: Good Disposition: HOME Prescriptions: Azelastine 0.05% (OPHTH)(NF) [Optivar 0.05% (NF)] 1 drop LEFT EYE BID PRN #1 btl PRN Reason: allergy symptoms in the eye Referrals: Luz Kate NP [Primary Care Provider] - Brody Manzanares MD [Medical Doctor] - Additional Instructions: Take your Zyrtec tonight. Benadryl may help. Ice or cool compresses to the area. Return with increased pain, vision changes, headaches, worse or other concerns. - Billing Disposition and Condition Condition: GOOD Disposition: HOME
[2017-08-06] MEDS ORDERED: Fluorescein Sod TOPICAL 0.6* 0.6 MG TEST OPHTHALMIC ONE ×2 (19:44→19:45)
== END 2017-08-06 20:00 | disposition home or self-care (01) ==
LOC: UCEAST 18:54
DX: H10.12 Acute atopic conjunctivitis, left eye (principal); J45.909 Unspecified asthma, uncomplicated; K21.9 Gastro-esophageal reflux disease without esophagitis; G43.909 Migraine, unspecified, not intractable, without status migrainosus; F41.9 Anxiety disorder, unspecified; Z88.2 Allergy status to sulfonamides; Z91.048 Other nonmedicinal substance allergy status
CPT/HCPCS: 99212; G0463